=== PATIENT | male | born 1990 | race Caucasian/White ===

== ENCOUNTER 2017-02-03 17:16 | Inpatient (IN) | payer MEDICAID ==
[2017-02-03] MEDS ORDERED: NORMAL SALINE 1000 ML 1,000 ML IV PRN (18:39)
--- NOTE | 2017-02-03 18:45 | ER Document Report ---
ED Medical Screen (RME) - General Chief Complaint: Insect Bite Stated Complaint: Hernia and low back pain with skin inflammation Time Seen by Provider: 02/03/17 18:06 Notes: Patient is a 26-year-old male who presents emergency department with 2 complaints. Primary concern is a left inguinal hernia these had for a couple years but over the past 3 days it has become firm, tender and does not reduce. Patient denies any diarrhea, constipation. admits to fever, chills, nausea without vomiting. Also presents with complaint of left lower back swelling, tenderness for the past 4 days. Patient suffered a spinal cord injury in 2014 which is left him with partial paralysis of the lower extremities. Patient able to move his lower extremities but is unable to bear weight and is wheelchair-bound. Otherwise he denies any history of MRSA. He is originally from [place] and is here visiting family. Admits to tobacco use, denies any drug use, occasional alcohol use. I have consulted general surgeon implementation consultant Dr. Torres to evaluate the patient and he has requested a CT of the abdomen and pelvis with IV and p.o. contrast. Patient is to be moved to Main emergency department for surgical consult and possible admission. Patient is to be kept n.p.o. , IV access established and basic blood work sent. TRAVEL OUTSIDE OF THE [place] IN LAST 30 DAYS: No - Related Data Allergies/Adverse Reactions: No Known Allergies Allergy (Verified 02/03/17 17:36) Past Medical History - Social History Chew tobacco use (# tins/day): No Frequency of alcohol use: None Drug Abuse: None Renal/ Medical History: Denies: Hx Peritoneal Dialysis - Immunizations Hx Diphtheria, Pertussis, Tetanus Vaccination: No Physical Exam - Vital signs Vitals: Temp Pulse Resp BP Pulse Ox 98.2 F 102 H 14 111/57 L 98 02/03/17 17:30 02/03/17 17:30 02/03/17 17:30 02/03/17 17:30 02/03/17 17:30 - General General appearance: Appears well, Alert In distress: None - Respiratory Respiratory status: No respiratory distress Chest status: Nontender Breath sounds: Normal Chest palpation: Normal - Cardiovascular Rhythm: Regular Heart sounds: Normal auscultation, S1 appreciated, S2 appreciated Murmur: No Pulses: Normal: Radial, Dorsalis pedis Normal capillary refill: Yes - Abdominal Inspection: Other - left inguinal hernia Distension: No distension Bowel sounds: Normal Tenderness: Other - left inguinal hernia that is firm, tender and nonreducible Organomegaly: No organomegaly - Skin Location of irregularity: Other - left lower back Character of irregularity: Other - cellulitis without evidence of abscess on bedside ultrasound Irregularity with: Swelling, Tenderness, Warmth, Induration, Well defined border Course - Vital Signs Vital signs: Temp Pulse Resp BP Pulse Ox 98.2 F 102 H 14 111/57 L 98 02/03/17 17:30 02/03/17 17:30 02/03/17 17:30 02/03/17 17:30 02/03/17 17:30
--- NOTE | 2017-02-03 20:12 | ER Document Report ---
ED GI/ <JOHN REED - Last Filed: 02/04/17 07:35> - General Mode of Arrival: Ambulatory Information source: Patient TRAVEL OUTSIDE OF THE [place] IN LAST 30 DAYS: No - HPI Patient complains to provider of: Groin pain - Bilateral swollen knots, possible lymph nodes, possible hernias Timing/Duration: Gradual, Intermittent Quality of pain: Sharp Severity at maximum: Moderate Severity in ED: Moderate Pain Level: 4 Location: Other - bilateral groin swollen tender area. Associated symptoms: Other - stage 3 decubitus to left buttock with cellulitis Exacerbated by: Movement, Walking Relieved by: Denies Similar symptoms previously: Yes Recently seen / treated by doctor: No <JANETH DAVALOS - Last Filed: 02/04/17 07:44> - General Chief Complaint: Insect Bite Stated Complaint: BACK PAIN/POSSIBLE SPIDER BITE Time Seen by Provider: 02/03/17 18:06 Notes: 26-year-old male presents to ED for one is that he has a new broken down area on his bottom. He is a partial plegic from the waist down. He states he can walk for a short distance with a walker but his legs give out at the gym very short distance due to a spinal cord injury in 2015 he mostly uses a wheelchair and sits in the chair. Which is why he has decubitus on his buttocks and coccyx that is newer. He also has enlarged lymph nodes left and right the left greater than the right. States the left inguinal not has been there for about 3 or 4 days states it has been there off and on for the last year but small that today it is much bigger one on the right is small but tender to touch. ( JANETH DAVALOS) - Related Data Allergies/Adverse Reactions: No Known Allergies Allergy (Verified 02/03/17 17:36) Past Medical History - General Information source: Patient - Social History Smoking Status: Current Every Day Smoker Cigarette use (# per day): Yes - 5 cigarettes a day Chew tobacco use (# tins/day): No Smoking Education Provided: Yes - 2 minutes Frequency of alcohol use: Social Drug Abuse: None Occupation: Disabled partial paralysis from waist down Lives with: Parents Family History: Reviewed & Not Pertinent Patient has suicidal ideation: No Patient has homicidal ideation: No - Past Medical History Cardiac Medical History: Reports: None Pulmonary Medical History: Reports: None Renal/ Medical History: Denies: Hx Peritoneal Dialysis Past Surgical History: Reports: Other - Over a dozen surgeries related with the spine and left hip reconstruction. - Immunizations Hx Diphtheria, Pertussis, Tetanus Vaccination: No <JANETH DAVALOS - Last Filed: 02/04/17 07:44> Physical Exam - Vital signs Interpretation: Normal - General General appearance: Appears well, Alert - HEENT Head: Normocephalic, Atraumatic Eyes: Normal Pupils: PERRL - Respiratory Respiratory status: No respiratory distress Chest status: Nontender Breath sounds: Normal Chest palpation: Normal - Cardiovascular Rhythm: Regular Heart sounds: Normal auscultation Murmur: No - Abdominal Inspection: Normal Distension: No distension Bowel sounds: Normal Tenderness: Nontender Organomegaly: No organomegaly - Back Back: Normal, Nontender - Extremities General upper extremity: Normal inspection, Nontender, Normal color, Normal ROM , Normal temperature General lower extremity: Normal inspection, Nontender, Normal color, Normal ROM , Normal temperature, Normal weight bearing. No: Jenelle's sign - Neurological Neuro grossly intact: Yes Cognition: Normal Orientation: AAOx4 [place] Coma Scale Eye Opening: Spontaneous Kevin Coma Scale Verbal: Oriented [place] Coma Scale Motor: Obeys Commands Kevin Coma Scale Total: 15 Speech: Normal Motor strength normal: LUE, RUE, LLE, RLE Sensory: Normal - Psychological Associated symptoms: Normal affect, Normal mood - Skin Skin Temperature: Warm Skin Moisture: Dry Skin Color: Normal Location of irregularity: Other - buttocks Character of irregularity: Erythematous Irregularity with: Swelling, Tenderness, Warmth - left buttock has 2 decubitus 1 that is old and healing and a large decubitus that is red and inflamed with smal area of eschar., Lymphangitis, Thickening, Inflammation <JANETH DAVALOS - Last Filed: 02/04/17 07:44> - Vital signs Vitals: Temp Pulse Resp BP Pulse Ox 98.2 F 102 H 14 111/57 L 98 02/03/17 17:30 02/03/17 17:30 02/03/17 17:30 02/03/17 17:30 02/03/17 17:30 Course - Laboratory Result Diagrams: 02/03/17 20:00 02/03/17 20:00 <JOHN REED - Last Filed: 02/04/17 07:35> - Laboratory Result Diagrams: 02/03/17 20:00 02/03/17 20:00 - Diagnostic Test Radiology reviewed: Image reviewed, Reports reviewed <JANETH DAVALOS - Last Filed: 02/04/17 07:44> - Re-evaluation Re-evalutation: 02/03/17 23:40 Dr. Torres was at the bedside at 20:20 and the patient. He stated that the knots that Tresa was concerned about were enlarged lymph nodes and he felt the patient had osteomyelitis and will need orthopedic consult. He states please go ahead and get a CT abdomen and pelvis which is been ordered. He stated if the patient had appendicitis to call him and him in the OR. At [address] came back as being a abscess in the pelvis. Dr. Torres was called in OR he stated he still thinks it is osteomyelitis. We will wait for him to finish surgery for him to come and see the patient and the CAT scan. Patient with periodic while waiting. 02/04/17 04:45 Dr Torres was to the bedside and examined the patient. He stated he did not feel the abscess needed to be opened at this time but needs to be medically treated. Patient instructed to follow up with surgical clinic for wound care until he returns home to [place]. Will start patient on bactrim until he follows up with wound care. He was instructed to follow up with surgeon for biopsy of the lymphnodes to bilateral groin areas 02/04/17 05:00 Before patient could be discharged his vital signs were taken developed a temperature of 103. Discharge was canceled. Dr. ray was notified that the had a fever with his cellulitis decubitus he states the patient is still not a surgical patient in need to call medical. Dr. Flores was called who stated the patient is not a medical patient needs to be admitted to surgical. After calls back and forth I have consulted Dr. Reed to help me to get this patient admitted. 02/04/17 07:43 (JANETH DAVALOS) - Vital Signs Vital signs: Temp Pulse Resp BP Pulse Ox 102 F H 108 H 17 105/61 97 02/04/17 05:28 02/04/17 05:28 02/04/17 05:28 02/04/17 05:28 02/04/17 05:28 - Laboratory Laboratory results interpreted by me: 02/03/17 02/03/17 20:00 20:00 WBC 13.4 H MCHC 31.1 L RDW 14.5 H Seg Neutrophils % 83.2 H Lymphocytes % 7.0 L Absolute Neutrophils 11.2 H Total Protein 8.6 H - Transfer of Care Notes: 02/04/17 07:36 [address] did speak with Dr. Tinsley, hospitalist on-call, who agrees to evaluate and admit the patient. Dictation of this chart was performed using voice recognition software; therefore, there may be some unintended grammatical errors. (JOHN REED) Discharge - Discharge Admitting Provider: Hospitalist Unit Admitted: Medical Floor <JOHN REED - Last Filed: 02/04/17 07:35> <JANETH DAVALOS - Last Filed: 02/04/17 07:44> - Discharge Clinical Impression: Lymphadenopathy, Decubitus ulcer of left buttock, stage 3 Condition: Stable Disposition: ADMITTED INPATIENT
[2017-02-03 20:21] LABS: ABSOLUTE EOSINOPHILS # (AUTO) 0.3 10^3/uL (0.0-0.6); ABSOLUTE LYMPHOCYTES (AUTO) 0.9 10^3/uL (0.5-4.7); ABSOLUTE NEUT (AUTO) 11.2 10^3/uL (1.7-8.2); BASOPHILS % (AUTO) 0.3 % (0-2); EOSINOPHILS % (AUTO) 2.2 % (0-6); HEMATOCRIT 46.4 % (37.9-51.0); HEMOGLOBIN 14.4 g/dL (13.5-17.0); HGB HCT DIFFERENCE -3.2; MEAN CORPUSCULAR HEMOGLOBIN 27.4 pg (27.0-33.4); MEAN CORPUSCULAR HGB CONC 31.1 g/dL (32.0-36.0); MEAN CORPUSCULAR VOLUME 88 fl (80-97); MONOCYTES % (AUTO) 7.3 % (3-13); RED BLOOD COUNT 5.27 10^6/uL (4.35-5.55); RED CELL DISTRIBUTION WIDTH 14.5 % (11.5-14.0); SEGMENTED NEUTROPHILS % (AUTO) 83.2 % (42-78); WHITE BLOOD COUNT 13.4 10^3/uL (4.0-10.5)
--- NOTE | 2017-02-03 20:24 | PDOC CONSULTATION ---
Consultation Consult Date: 02/03/17 Consult reason:: Left groin swelling History of Present Illness History of Present Illness: RIDGE HUTTON is a 26 year old male with a history of intermittent left groin discomfort associated with swelling. He has noticed that this problem for about the past year. He has noticed a persistent lump on the left groin with some mild discomfort for the past several days. Nausea or vomiting. No abdominal pain. Patient has had a chronic open wound in his left posterior hip region. He has had a history of osteomyelitis treated with antibiotics in the past. And the wound has never healed. Patient also had erythema above this wound that had developed recently. Past Medical History Musculoskeletal History Note: Chronic back pain with history of multiple back surgeries. Past Surgical History Past Surgical History: Reports: Other - Over a dozen surgeries related with the spine and left hip reconstruction. Social History Smoking Status: Never Smoker Family History Parental Family History Reviewed: No Children Family History Reviewed: No Sibling(s) Family History Reviewed.: No Medication/Allergy Allergies/Adverse Reactions: No Known Allergies Allergy (Verified 02/03/17 17:36) Physical Exam Vital Signs: Temp Pulse Resp BP Pulse Ox 98.2 F 102 H 14 111/57 L 98 02/03/17 17:30 02/03/17 17:30 02/03/17 17:30 02/03/17 17:30 02/03/17 17:30 Intake & Output 02/02/17 02/03/17 02/04/17 06:59 06:59 06:59 Weight 62.8 kg General appearance: PRESENT: no acute distress, cooperative Eye exam: PRESENT: conjunctiva pink Respiratory exam: PRESENT: clear to auscultation lolita Cardiovascular exam: PRESENT: RRR GI/Abdominal exam: PRESENT: other - Soft, nondistended, nontender to palpation. Multiple scars well-healed with no palpable hernias. Gentrourinary exam: PRESENT: other - Bilateral testicles descended with no testicular masses. No palpable bulge noted with finger inserted into the external inguinal ring. On the left side just above the inguinal ligament above the femoral artery there is oblong firm smooth mass that is nonreducible. It appears to far lateral for an inguinal hernia and likely above inguinal segment thus not a femoral hernia. Extremities exam: PRESENT: other - Left posterior hip region with about a 2 cm sinus tract with surrounding erythema but no induration and no purulent drainage. Above this area patient has a several centimeter region of erythema with no fluctuance. Assessment & Plan - Diagnosis (1) Lymphadenopathy Is this a current diagnosis for this admission?: YesPlan: Left groin. However I cannot completely exclude an incarcerated inguinal hernia but my exam is not consistent with incarcerated hernia. Patient will undergo a CT scan. I have asked the ER physician to call me if it does show a an incarcerated hernia. Patient's lymphadenopathy is likely secondary to the chronic infectious process of his left posterior hip. Possible osteomyelitis. Patient has a chronic track. He has a cellulitis above it as well. Will defer to ER management of this process. Recommend referral to orthopedics if the x- rays demonstrate evidence of osteomyelitis. Otherwise referral to wound care clinic.
[2017-02-03 20:28] LABS: PROTHROMBIN TIME 14.9 SEC (11.4-15.4)
[2017-02-03 20:39] LABS: ALANINE AMINOTRANSFERASE 23 U/L (21-72); ALBUMIN 4.3 g/dL (3.5-5.0); ALKALINE PHOSPHATASE 96 U/L (38-126); ANION GAP 13 (5-19); ASPARTATE AMINO TRANSFERASE 25 U/L (17-59); BILIRUBIN,DIRECT 0.4 mg/dL (0.0-0.4); BILIRUBIN,TOTAL 0.7 mg/dL (0.2-1.3); BLOOD UREA NITROGEN 14 mg/dL (7-20); CALCIUM 9.4 mg/dL (8.4-10.2); CARBON DIOXIDE 26 mmol/L (22-30); CHLORIDE 103 mmol/L (98-107); CREATININE RESULT 0.84 mg/dL (0.52-1.25); GLUCOSE 98 mg/dL (75-110); SODIUM 142.2 mmol/L (137-145); TOTAL PROTEIN 8.6 g/dL (6.3-8.2)
[2017-02-03 21:11] LABS: APPEARANCE,URINE CLEAR; BILIRUBIN,URINE NEGATIVE (NEGATIVE); GLUCOSE, URINE NEGATIVE (NEGATIVE); KETONES,URINE NEGATIVE (NEGATIVE); LEUKOCYTE ESTERASE,URINE NEGATIVE (NEGATIVE); NITRITE,URINE NEGATIVE (NEGATIVE); PROTEIN,URINE NEGATIVE (NEGATIVE); UROBILINOGEN,URINE NEGATIVE mg/dL (<2.0)
[2017-02-03] MEDS ORDERED: ACETAMINOPHEN 650 MG SUPP.RECT PR ONE (21:37)
--- NOTE | 2017-02-03 22:45 | RADIOLOGY REPORT (SQ) ---
EXAM DESCRIPTION: CT ABD/PELVIS WITH IV ORAL COMPLETED DATE/TIME: 02/03/2017 10:14 pm REASON FOR STUDY: left inguinal hernia, nonreducible COMPARISON: None. TECHNIQUE: CT scan of the abdomen and pelvis performed using helical scanning technique with dynamic intravenous contrast injection. No oral contrast. Images reviewed with lung, soft tissue, and bone windows. Reconstructed coronal and sagittal MPR images reviewed. Delayed images for evaluation of the urinary system also acquired. All images stored on PACS. All CT scanners at this facility use dose modulation, iterative reconstruction, and/or weight based d osing when appropriate to reduce radiation dose to as low as reasonably achievable (ALARA). [facility]: Dose Right [facility]: CareDose [facility]: Dose Right [facility]: Teradose 4D [facility]: Distill CONTRAST TYPE AND DOSE: contrast/concentration: Isovue 370.00 mg/ml; Total Contrast Delivered: 68.0 ml; Total Saline Delivered: 45.0 ml RENAL FUNCTION: None required. The patient is less than 50 years old. RADIATION DOSE: Up-to-date CT equipment and radiation dose reduction techniques were employed. CTDIv ol: 4.9 mGy. DLP: 559 mGy-cm.. LIMITATIONS: None. FINDINGS: LOWER CHEST: No significant findings. No nodules or infiltrates. LIVER: Normal size. No masses. No dilated ducts. SPLEEN: Normal size. No focal lesions. PANCREAS: No masses. No significant calcifications. No adjacent inflammation or peripancreatic fluid collections. Pancreatic duct not dilated. GALLBLADDER: No identified stones by CT criteria. No inflammatory changes to suggest cholecystitis. ADRENAL GLANDS: No significant masses or asymmetry. RIGHT KIDNEY AND URETER: No solid masses. No significant calcifications. No hydronephrosis or hyd roureter. LEFT KIDNEY AND URETER: No solid masses. No significant calcifications. No hydronephrosis or hydr oureter. AORTA AND VESSELS: No aneurysm. No dissection. Renal arteries, SMA, celiac without stenosis. RETROPERITONEUM: No retroperitoneal adenopathy, hemorrhage or masses. BOWEL AND PERITONEAL CAVITY: No masses or inflammatory changes. No free fluid or peritoneal masses. APPENDIX: Not visualized. PELVIS: There are numerous enlarged bilateral inguinal lymph nodes. No focal hernia. The largest no de is on the left and measures 2.6 cm in diameter. There are extensive postsurgical changes in the p moreno which limit soft tissue evaluation. There is a focal area of decreased attenuation along the r ight inferior pubic ramus suspicious for developing abscess. The collection measures 2.6 cm in great est diameter. On the left there is no focal fluid but there is subcutaneous gas. This may represent a decubitus. Clinical correlation is needed. ABDOMINAL WALL: No masses. No hernias. BONES: No significant or acute findings. OTHER: No other significant finding. IMPRESSION: 1. Bilateral inguinal adenopathy left greater than right. No focal hernia. 2. Inflammatory changes surrounding both the inferior pubic rami with a focal 2.6 cm fluid collectio n on the right consistent with developing abscess. TECHNICAL DOCUMENTATION: JOB ID: [id number] Quality ID # [id number]: Final reports with documentation of one or more dose reduction techniques (e.g., Au tomated exposure control, adjustment of the mA and/or kV according to patient size, use of iterative reconstruction technique) 2010 [employer]- All Rights Reserved
[2017-02-03] MEDS ORDERED: AMPICILLIN SOD/SULBACTAM 3 GM VIAL IV ONE (23:29)
[2017-02-04] MEDS ORDERED: HYDROCODONE/ACETAMINOPHEN 5-325 MG TABLET PO ONE (01:17)
--- NOTE | 2017-02-04 03:24 | PDOC PROGRESS REPORT ---
Subjective Progress Note for:: 02/04/17 Physical Exam Vital Signs: Temp Pulse Resp BP Pulse Ox 98.2 F 102 H 14 111/57 L 98 02/03/17 17:30 02/03/17 17:30 02/03/17 17:30 02/03/17 17:30 02/03/17 17:30 Intake & Output 02/02/17 02/03/17 02/04/17 06:59 06:59 06:59 Weight 62.8 kg Rectal exam: PRESENT: other - right buttocks with scarring consistent with an old prior abscess. There is no induration the skin is very soft there is absolutely no erythema. There is a palpable soft mass that extends to the perineum consistent with a seroma. But again there is no induration and no erythema in the skin overlying this apparent seroma is soft and supple. Results Laboratory Results: 02/03/17 20:00 02/03/17 20:00 02/03/17 02/03/17 02/03/17 20:00 20:00 20:47 WBC 13.4 H RBC 5.27 Hgb 14.4 Hct 46.4 MCV 88 MCH 27.4 MCHC 31.1 L RDW 14.5 H Plt Count 226 Seg Neutrophils % 83.2 H Lymphocytes % 7.0 L Monocytes % 7.3 Eosinophils % 2.2 Basophils % 0.3 Absolute Neutrophils 11.2 H Absolute Lymphocytes 0.9 Absolute Monocytes 1.0 Absolute Eosinophils 0.3 Absolute Basophils 0.0 Sodium 142.2 Potassium 4.0 Chloride 103 Carbon Dioxide 26 Anion Gap 13 BUN 14 Creatinine 0.84 Est GFR ( Amer) > 60 Est GFR (Non-Af Amer) > 60 Glucose 98 Calcium 9.4 Total Bilirubin 0.7 AST 25 ALT 23 Alkaline Phosphatase 96 Total Protein 8.6 H Albumin 4.3 Urine Color YELLOW Urine Appearance CLEAR Urine pH 5.0 Ur Specific [place] 1.030 Urine Protein NEGATIVE Urine Glucose (UA) NEGATIVE Urine Ketones NEGATIVE Urine Blood NEGATIVE Urine Nitrite NEGATIVE Ur Leukocyte Esterase NEGATIVE Urine WBC (Auto) 0 Urine RBC (Auto) 3 Impressions: Abdomen/Pelvis CT 02/03/17 00:00 IMPRESSION: 1. Bilateral inguinal adenopathy left greater than right. No focal hernia. 2. Inflammatory changes surrounding both the inferior pubic rami with a focal 2.6 cm fluid collection on the right consistent with developing abscess. Assessment & Plan - Diagnosis (1) Lymphadenopathy Is this a current diagnosis for this admission?: Yes (2) Seroma Is this a current diagnosis for this admission?: YesPlan: CT scan demonstrated lymphadenopathy. It demonstrated the sinus tract of the left buttocks region that is seen on exam. Radiologist also commented on a pelvic fluid collection. I have reviewed the CT scan with the radiologist and there does appear to be a fluid collection at the right buttocks area tracking to the perineum. However there is no evidence of infection by physical exam in this region. Patient has had a prior decubitus ulcer in this area that has healed over and I suspect that it is a seroma from this prior event. I do not recommend any intervention for this finding. However he does have cellulitis of his left upper buttocks region as well as a nonhealing sinus tract in the left buttocks region. Will defer to ER as far as management with antibiotics as an outpatient versus inpatient. Recommend follow-up with wound care clinic as outpatient for the chronic wound. Have discussed my recommendation with the ER nurse practitioner.
[2017-02-04] MEDS ORDERED: ACETAMINOPHEN 325 MG TABLET PO ONE (07:01)
[2017-02-04] MEDS ORDERED: ONDANSETRON HCL INJ/PF 4 MG/2 ML SDV IV PRN (07:26)
[2017-02-04] MEDS: OXYCODONE-ACETAMINOPHEN 5-325 MG TABLET PO PRN ×2 (09:09→19:47)
[2017-02-04] MEDS ORDERED: NORMAL SALINE 1000 ML 1,000 ML IV ONE (09:20)
[2017-02-04] MEDS ORDERED: VANCOMYCIN HCL 0 MG in DEXTROSE 5%-WATER 250 ML IV NR (09:30)
[2017-02-04] MEDS ORDERED: ENOXAPARIN SODIUM INJ 40 MG/0.4 ML DISP.SYRIN SUBCUT SCH (10:00)
[2017-02-04] MEDS ORDERED: VANCOMYCIN HCL 1,500 MG in DEXTROSE 5%-WATER 250 ML IV ONE (11:00)
[2017-02-04] MEDS: LACTOBACILLUS ACIDOPHILUS 250 MG TAB PO SCH ×2 (11:45→18:11)
[2017-02-04] MEDS: NICOTINE 14 MG/24 HR PATCH.TD24 TD SCH (11:46)
[2017-02-04] MEDS: DOCUSATE SODIUM 100 MG CAPSULE PO SCH ×2 (11:47→18:14)
[2017-02-04] MEDS: NORMAL SALINE 1000 ML 1,000 ML IV PRN (11:50)
[2017-02-04] MEDS ORDERED: PIPERACILLIN SODIUM/TAZOBACTAM 4.5 GM in NORMAL SALINE 100 ML IV SCH (12:00)
--- NOTE | 2017-02-04 12:56 | PDOC H&P ---
History of Present Illness Admission Date/PCP: 02/04/17 07:26 Patient complains of: Right lower abdominal pain and pain in left buttock History of Present Illness: Patient is a 26-year-old male who presents tp [facility]'s emergency department with 2 complaints. Primary concern is a left inguinal hernia these had for a couple years but over the past 3 days it has become firm , tender and does not reduce. Patient denies any diarrhea, constipation. admits to fever, chills, nausea without vomiting. Also presents with complaint of left lower back swelling, tenderness for the past 4 days. Patient suffered a spinal cord injury in 2014 which is left him with partial paralysis of the lower extremities. Patient able to move his lower extremities but is unable to bear weight and is wheelchair-bound. Otherwise he denies any history of MRSA. He is originally from [place] and is here visiting family. Admits to tobacco use, denies any drug use, occasional alcohol use. Past Medical History Cardiac Medical History: Reports: None Pulmonary Medical History: Reports: None EENT Medical History: Reports: None Neurological Medical History: Reports: None Endocrine Medical History: Reports: None Renal/ Medical History: Reports: None Malignancy Medical History: Reports: None GI Medical History: Reports: Other - Right inguinal hernia Musculoskeltal Medical History: Reports: Other Skin Medical History: Reports: None Psychiatric Medical History: Reports: Tobacco Dependency Traumatic Medical History: Reports: None Hematology: Reports: None Infectious Medical History: Reports: None Past Surgical History Past Surgical History: Reports: Other - Over a dozen surgeries related with the spine and left hip reconstruction. Social History Information Source: Patient Lives with: Parents Smoking Status: Current Every Day Smoker Cigarettes Packs Per Day: 5 Number of Years Smokin Last Time Smoked: 02/03/17 Frequency of Alcohol Use: Social Hx Recreational Drug Use: No Drugs: None Hx Prescription Drug Abuse: No - Advance Directive Resuscitation Status: Full Code Surrogate healthcare decision maker:: Mother, his healthcare decision maker if he becomes incapacitated Family History Family History: Hypertension Parental Family History Reviewed: Yes Children Family History Reviewed: Yes Sibling(s) Family History Reviewed.: Yes Medication/Allergy Home Medications: Oxycodone HCl/Acetaminophen [Percocet 5-325 mg Tablet] 1 tab PO Q12 02/04/17 Allergies/Adverse Reactions: No Known Allergies Allergy (Verified 02/03/17 17:36) Review of Systems Constitutional: PRESENT: chills, fever(s) Eyes: ABSENT: visual disturbances Ears: ABSENT: hearing changes Cardiovascular: ABSENT: chest pain, dyspnea on exertion, edema, orthropnea, palpitations Respiratory: PRESENT: cough. ABSENT: hemoptysis Gastrointestinal: PRESENT: abdominal pain Genitourinary: ABSENT: dysuria, hematuria Musculoskeletal: PRESENT: back pain, deformity, other - Paraplegic Integumentary: PRESENT: erythema, wounds, other - 6cm area of erythema with purulent drainage on left upper gluteal region Neurological: ABSENT: abnormal gait, abnormal speech, confusion, dizziness, focal weakness, syncope Psychiatric: ABSENT: anxiety, depression, homidical ideation, suicidal ideation Physical Exam Vital Signs: Temp Pulse Resp BP Pulse Ox 98.1 F 89 18 97/58 L 98 02/04/17 10:37 02/04/17 10:37 02/04/17 10:37 02/04/17 10:37 02/04/17 10:37 Intake & Output 02/03/17 02/04/17 02/05/17 06:59 06:59 06:59 Weight 64.2 kg General appearance: PRESENT: no acute distress, thin, well-developed Head exam: PRESENT: atraumatic, normocephalic Eye exam: PRESENT: conjunctiva pink, EOMI, PERRLA. ABSENT: scleral icterus Ear exam: PRESENT: normal external ear exam Mouth exam: PRESENT: moist, tongue midline Respiratory exam: PRESENT: clear to auscultation lolita. ABSENT: rales, rhonchi, wheezes Cardiovascular exam: PRESENT: RRR. ABSENT: diastolic murmur, rubs, systolic murmur Vascular exam: PRESENT: normal capillary refill GI/Abdominal exam: PRESENT: hernia, normal bowel sounds, soft, other - left inguinal reducible. ABSENT: distended, guarding, mass, organolmegaly, rebound, tenderness Extremities exam: PRESENT: full ROM, other - muscle atrophy of bilateral lower extremities. ABSENT: calf tenderness, clubbing, pedal edema Musculoskeletal exam: PRESENT: normal inspection, other Neurological exam: PRESENT: alert, awake, oriented to person, oriented to place , oriented to time, oriented to situation, CN II-XII grossly intact. ABSENT: motor sensory deficit Psychiatric exam: PRESENT: appropriate affect, normal mood. ABSENT: homicidal ideation, suicidal ideation Skin exam: PRESENT: erythema - 6 cm erythemic are, warm, other Results Impressions: Abdomen/Pelvis CT 02/03/17 00:00 IMPRESSION: 1. Bilateral inguinal adenopathy left greater than right. No focal hernia. 2. Inflammatory changes surrounding both the inferior pubic rami with a focal 2.6 cm fluid collection on the right consistent with developing abscess. Assessment & Plan - Diagnosis (1) Abscess Is this a current diagnosis for this admission?: YesPlan: Patient has an large abcess of the left upper gluteal region with purulent discharge. Patient will be started on broad spectrum antibiotics after blood cultures x 2 were (2) Decubitus ulcer of left buttock, stage 3 Is this a current diagnosis for this admission?: YesPlan: IV broad spectrum antibiotics, local wound care consult with general surgery (3) Lymphadenopathy Is this a current diagnosis for this admission?: YesPlan: Secondary to left gluteal abcess (4) Paraplegia, incomplete Is this a current diagnosis for this admission?: YesPlan: Secondary to trauma partial paralysis of bilateral lower extremities - Time Time Spent: 50 to 70 Minutes Critical Time spent with patient: 35 or more minutes Medications reviewed and adjusted accordingly: Yes Anticipated discharge: Home with Homehealth
[2017-02-04] MEDS ORDERED: DIPHENHYDRAMINE HCL 25 MG CAPSULE PO ONE (14:00)
[2017-02-04] MEDS: ACETAMINOPHEN 325 MG TABLET PO PRN ×2 (15:28→23:45)
[2017-02-04] MEDS ORDERED: GLUCAGON,HUMAN RECOMB 1 MG INJ SUBCUT PRN (17:59)
[2017-02-04] MEDS ORDERED: DEXTROSE 50%-WATER 25 GM/50 ML DISP.SYRIN IV PRN ×2 (17:59)
[2017-02-04] MEDS ORDERED: DEXTROSE 40% GEL 15 GM TUBE PO PRN ×2 (17:59)
[2017-02-04] MEDS: VANCOMYCIN HCL 750 MG in DEXTROSE 5%-WATER 250 ML IV SCH (18:11)
[2017-02-04] MEDS: MORPHINE SULFATE 10 MG/ML INJ IV PRN ×2 (18:22→23:46)
[2017-02-04] MEDS: PIPERACILLIN SODIUM/TAZOBACTAM 4.5 GM in NORMAL SALINE 100 ML IV SCH (20:56)
[2017-02-04] MEDS: ALPRAZOLAM 0.5 MG TABLET PO PRN (20:57)
--- NOTE | 2017-02-04 21:14 | RADIOLOGY REPORT (SQ) ---
EXAM DESCRIPTION: MRI PELVIS COMBO COMPLETED DATE/TIME: 02/04/2017 8:47 pm REASON FOR STUDY: concern for osteomyelitis COMPARISON: None. TECHNIQUE: Multiplanar multisequence imaging without and with contrast including axial, sagittal and coronal fat sat T2, axial and coronal T1, axial and coronal T1 post contrast. CONTRAST TYPE AND DOSE: 10 mL Prohance. RENAL FUNCTION: GFR > 60. LIMITATIONS: None. FINDINGS: Increased T2 signal and decreased T1 signal in the marrow of the left ischial ramus and po sterior tuberosity with mild cortical irregularity. Mild enhancement is present in this region follo wing contrast administration. There is diffuse soft tissue edema and enhancement throughout the left ischial in gluteal soft tissues. In the right ischial soft tissues there is rim enhancing fluid which is irregularly-shaped, measuring 7 cm transversely by 3 cm AP by 1.2 cm in thickness, this extends from the right peroneal -inferior scrotal soft tissue superiorly along the posterior aspect of the right ischial ramus into the gluteal soft tissues. Small areas of edema extend into the sciatic notch. No perirectal or intrapelvic fluid collection or and significant abnormal enhancement is otherwise identified. Lower lumbar spinal fusion. IMPRESSION: Findings concerning for osteomyelitis in the left ischial ramus-tuberosity. Findings arrington ggesting abscess in the right ischial soft tissues. TECHNICAL DOCUMENTATION: JOB ID: [id number]- All Rights Reserved
--- NOTE | 2017-02-04 23:09 | PROGRESS NOTE E ---
Progress Note NAME: RIDGE HUTTON : 1990 AGE: 26Y DATE: 02/04/2017 ROOM: 314 SUBJECTIVE: The patient is a 26-year-old male with a history of a back injury with spinal cord injury in 2014 having partial paralysis of the lower extremities. He has had pain and drainage from the buttock region, therefore came to the emergency room to be evaluated. He was found to have a pressure sore on the left side with some skin necrosis. He has had drainage in the past but has resolved spontaneously. He had been doing well until about a week ago when he started having this pain and swelling in the buttock area. He denies any recent trauma to those areas. The patient is complaining of pain in the left buttock region. OBJECTIVE: VITAL SIGNS: Temperature 101.8, pulse 107, blood pressure 110/58. DIAGNOSTIC DATA: White blood cell count 13.4. Cultures of the buttock region show gram-positive cocci in cluster. Previous CT scan shows a fluid collection of 4 cm in the right buttock area suspicious for an abscess. This is opposite to the side that he is having his symptoms from. ASSESSMENT AND PLAN: 1. SKIN NECROSIS, LEFT BUTTOCK. He also has air around the pubic rami on the left side that is connected to the area on the skin. There is questionable osteomyelitis being present. He does not have any obvious fistulous tract that could be causing the air deep in the subcutaneous tissue. Therefore, this was ongoing infection and would recommend incision, drainage and debridement of the entire necrotic area in the left buttock area. I have explained that this may go all the way to the pubic rami and he may need a bone biopsy. The risks and possible complications of the procedure have been explained to him and he agrees to proceed with the procedure. I have stated that this can be a intermediate issue and if he has infection in the pelvic bone, then further intervention will be needed. He would need long-term wound care or even surgical intervention in some of these cases for flap closure. He accepts the risks and wishes to proceed with the procedure. 2. FLUID COLLECTION IN THE RIGHT BUTTOCKS OF UNKNOWN ETIOLOGY. Currently he does not have any symptoms related to this. Because there is some suspicion for an abscess, consideration for interventional radiology and drainage with cultures of the fluid should be considered. I would recommend getting an MRI of the area to rule out osteomyelitis as a cause. 3. CONTINUE IV ANTIBIOTICS UNTIL WOUND CULTURES HAVE BEEN APPROPRIATELY OBTAINED. DICTATING PHYSICIAN: LIZBETH WOODWARD M.D. [id number] PHY#: [id number] 2017 ID: [id number] JOB#: [id number] ACCT: [id number] cc: >
[2017-02-05] MEDS: ZOLPIDEM TARTRATE 5 MG TABLET PO PRN (00:41)
[2017-02-05] MEDS: NORMAL SALINE 1000 ML 1,000 ML IV PRN (00:42)
[2017-02-05] MEDS: VANCOMYCIN HCL 750 MG in DEXTROSE 5%-WATER 250 ML IV SCH ×3 (01:30→22:29)
[2017-02-05] MEDS: OXYCODONE-ACETAMINOPHEN 5-325 MG TABLET PO PRN ×3 (03:31→20:37)
[2017-02-05] MEDS: ACETAMINOPHEN 325 MG TABLET PO PRN (04:54)
[2017-02-05] MEDS: PIPERACILLIN SODIUM/TAZOBACTAM 4.5 GM in NORMAL SALINE 100 ML IV SCH ×3 (04:54→17:14)
[2017-02-05 05:24] LABS: ABSOLUTE EOSINOPHILS # (AUTO) 0.3 10^3/uL (0.0-0.6); ABSOLUTE LYMPHOCYTES (AUTO) 0.9 10^3/uL (0.5-4.7); ABSOLUTE MONOCYTES (AUTO) 0.9 10^3/uL (0.1-1.4); ABSOLUTE NEUT (AUTO) 5.7 10^3/uL (1.7-8.2); BASOPHILS % (AUTO) 0.6 % (0-2); HEMATOCRIT 38.2 % (37.9-51.0); HEMOGLOBIN 12.5 g/dL (13.5-17.0); HGB HCT DIFFERENCE -0.7; LYMPHOCYTES % (AUTO) 11.9 % (13-45); MEAN CORPUSCULAR HEMOGLOBIN 28.5 pg (27.0-33.4); MEAN CORPUSCULAR HGB CONC 32.7 g/dL (32.0-36.0); MEAN CORPUSCULAR VOLUME 87 fl (80-97); RED BLOOD COUNT 4.38 10^6/uL (4.35-5.55); RED CELL DISTRIBUTION WIDTH 13.7 % (11.5-14.0); SEGMENTED NEUTROPHILS % (AUTO) 72.5 % (42-78); WHITE BLOOD COUNT 7.9 10^3/uL (4.0-10.5)
[2017-02-05 05:35] LABS: ANION GAP 11 (5-19); BLOOD UREA NITROGEN 7 mg/dL (7-20); CALCIUM 8.4 mg/dL (8.4-10.2); CARBON DIOXIDE 26 mmol/L (22-30); CHLORIDE 102 mmol/L (98-107); CREATININE RESULT 1.05 mg/dL (0.52-1.25); GLUCOSE 70 mg/dL (75-110); POTASSIUM 3.5 mmol/L (3.6-5.0)
[2017-02-05] MEDS: MORPHINE SULFATE 10 MG/ML INJ IV PRN ×3 (06:16→20:38)
[2017-02-05] MEDS ORDERED: ONDANSETRON HCL INJ/PF 4 MG/2 ML SDV ONE (08:18)
[2017-02-05] MEDS ORDERED: MIDAZOLAM 2 MG/2 ML INJ ONE (08:18)
[2017-02-05] MEDS ORDERED: DEXAMETHASONE SOD PHOSPHATE INJ 4 MG/1 ML VIAL ONE (08:18)
[2017-02-05] MEDS ORDERED: PROPOFOL INJ 200 MG/20 ML VIAL IV ONE (08:18)
[2017-02-05] MEDS ORDERED: FENTANYL CITRATE INJ/PF 250 MCG/5 ML AMPULE ONE (08:18)
[2017-02-05] MEDS ORDERED: MORPHINE SULFATE 10 MG/ML INJ ONE ×2 (08:19→10:22)
[2017-02-05] MEDS ORDERED: DIPHENHYDRAMINE HCL 50 MG/ML VIAL IV PRN (09:08)
[2017-02-05] MEDS ORDERED: OXYCODONE-ACETAMINOPHEN 5-325 MG TABLET PO PRN ×2 (09:08)
[2017-02-05] MEDS ORDERED: MORPHINE SULFATE 10 MG/ML INJ IV PRN (09:08)
[2017-02-05] MEDS ORDERED: MEPERIDINE HCL/PF INJ 25 MG/1 ML DISP.SYRIN IV PRN (09:08)
[2017-02-05] MEDS ORDERED: FENTANYL CITRATE INJ/PF 100 MCG/2 ML AMPUL IV PRN ×3 (09:08)
[2017-02-05] MEDS ORDERED: PROMETHAZINE HCL INJ 25 MG/1 ML VIAL IV PRN ×2 (09:08)
[2017-02-05] MEDS ORDERED: ACETAMINOPHEN 100 ML IV ONE (10:08)
[2017-02-05] MEDS ORDERED: MORPHINE SULFATE 10 MG/ML INJ INJ ONE (10:20)
[2017-02-05] MEDS: DOCUSATE SODIUM 100 MG CAPSULE PO SCH ×2 (11:37→17:14)
[2017-02-05] MEDS: LACTOBACILLUS ACIDOPHILUS 250 MG TAB PO SCH ×2 (11:37→17:14)
[2017-02-05] MEDS: NICOTINE 14 MG/24 HR PATCH.TD24 TD SCH (11:39)
[2017-02-05] MEDS ORDERED: BENZOCAINE/MENTHOL SORE THROAT LOZENGE BUCCAL PRN (11:51)
[2017-02-05] MEDS ORDERED: POTASSIUM CHLORIDE 10 MEQ TABLET.SA PO ONE (12:30)
[2017-02-05 13:23] LABS: CREATININE RESULT 0.88 mg/dL (0.52-1.25)
--- NOTE | 2017-02-05 14:35 | PDOC PROGRESS REPORT ---
Subjective Progress Note for:: 02/05/17 Subjective:: Patient is seen on morning rounds. He just returned from the OR/PACU after having a debridement of left gluteal abcess by Dr Scott. He is complaining of a sore throat and mild tenderness in his left buttock region. He denies any cough, dyspnea or shortness of breath. He denies any nausea, vomiting or abdominal pain. He denies any fevers or chills. Physical Exam Vital Signs: Temp Pulse Resp BP Pulse Ox 98.6 F 89 18 115/70 95 02/05/17 11:23 02/05/17 11:23 02/05/17 11:23 02/05/17 11:23 02/05/17 11:23 Intake & Output 02/04/17 02/05/17 02/06/17 06:59 06:59 06:59 Intake Total 3511 500 Output Total 2550 300 Balance 961 200 Weight 64.2 kg General appearance: PRESENT: no acute distress, thin, well-developed Head exam: PRESENT: atraumatic, normocephalic Eye exam: PRESENT: conjunctiva pink, EOMI, PERRLA. ABSENT: scleral icterus Ear exam: PRESENT: normal external ear exam Mouth exam: PRESENT: moist, tongue midline Respiratory exam: PRESENT: clear to auscultation lolita. ABSENT: rales, rhonchi, wheezes Cardiovascular exam: PRESENT: RRR. ABSENT: diastolic murmur, rubs, systolic murmur Pulses: PRESENT: normal dorsalis pedis pul Vascular exam: PRESENT: normal capillary refill GI/Abdominal exam: PRESENT: hypoactive bowel sounds, soft Rectal exam: PRESENT: deferred Extremities exam: PRESENT: full ROM. ABSENT: calf tenderness, clubbing, pedal edema Musculoskeletal exam: PRESENT: full ROM Neurological exam: PRESENT: alert, awake, oriented to person, oriented to place , oriented to time, oriented to situation, CN II-XII grossly intact, other - bilateral lower extremity weakness from spinal cord injury. ABSENT: motor sensory deficit Psychiatric exam: PRESENT: appropriate affect, normal mood. ABSENT: homicidal ideation, suicidal ideation Skin exam: PRESENT: dry, intact, warm. ABSENT: cyanosis, rash Results Laboratory Results: 02/05/17 03:52 02/05/17 12:23 02/05/17 02/05/17 02/05/17 03:52 03:52 12:23 WBC 7.9 RBC 4.38 Hgb 12.5 L Hct 38.2 MCV 87 MCH 28.5 MCHC 32.7 RDW 13.7 Plt Count 120 L Seg Neutrophils % 72.5 Lymphocytes % 11.9 L Monocytes % 11.0 Eosinophils % 4.0 Basophils % 0.6 Absolute Neutrophils 5.7 Absolute Lymphocytes 0.9 Absolute Monocytes 0.9 Absolute Eosinophils 0.3 Absolute Basophils 0.0 Sodium 139.0 Potassium 3.5 L Chloride 102 Carbon Dioxide 26 Anion Gap 11 BUN 7 Creatinine 1.05 0.88 Est GFR ( Amer) > 60 > 60 Est GFR (Non-Af Amer) > 60 > 60 Glucose 70 L Calcium 8.4 Impressions: Abdomen/Pelvis CT 02/03/17 00:00 IMPRESSION: 1. Bilateral inguinal adenopathy left greater than right. No focal hernia. 2. Inflammatory changes surrounding both the inferior pubic rami with a focal 2.6 cm fluid collection on the right consistent with developing abscess. Pelvis MRI 02/04/17 00:00 IMPRESSION: Findings concerning for osteomyelitis in the left ischial ramus- tuberosity. Findings suggesting abscess in the right ischial soft tissues. Assessment & Plan - Diagnosis (1) Sepsis Qualifiers: Sepsis type: sepsis due to unspecified organism Qualified Code(s): A41.9 - Sepsis, unspecified organism Is this a current diagnosis for this admission?: YesPlan: Improved after IV hydration and antibiotic therapy (2) Osteomyelitis Qualifiers: Osteomyelitis location: other site Is this a current diagnosis for this admission?: YesPlan: MRI pelvis showed osteomyelitis of left ischial tuberosity. Treatment dependent on surgery findings. Will need at least 6 weeks of IV antibiotics . Blood culture x 1 and wound cultures growing GM + cocci (3) Abscess Is this a current diagnosis for this admission?: YesPlan: Patient has an large abcess of the left upper gluteal region with purulent discharge. Patient will be started on broad spectrum antibiotics after blood cultures x 2 were (4) Decubitus ulcer of left buttock, stage 3 Is this a current diagnosis for this admission?: YesPlan: IV broad spectrum antibiotics, local wound care consult with general surgery (5) Lymphadenopathy Is this a current diagnosis for this admission?: YesPlan: Secondary to left gluteal abcess (6) Paraplegia, incomplete Is this a current diagnosis for this admission?: YesPlan: Secondary to trauma partial paralysis of bilateral lower extremities - Time Time Spent with patient: 25-34 minutes Critical Time spent with patient: 15-24 minutes Smoking Cessation Education: 3 to 10 minutes Medications reviewed and adjusted accordingly: Yes
[2017-02-05] MEDS: DIPHENHYDRAMINE HCL 50 MG/ML VIAL IV PRN ×2 (15:52→22:29)
[2017-02-05] MEDS: ALPRAZOLAM 0.5 MG TABLET PO PRN (22:30)
[2017-02-06] MEDS: PIPERACILLIN SODIUM/TAZOBACTAM 4.5 GM in NORMAL SALINE 100 ML IV SCH ×2 (00:18→05:42)
--- NOTE | 2017-02-06 04:23 | OPERATIVE REPORT E ---
Operative Report NAME: RIDGE HUTTON : 1990 AGE: 26Y DATE OF SURGERY: 02/05/2017 ROOM: 314 PREOPERATIVE DIAGNOSIS: Left sacral and ischial pressure sores. POSTOPERATIVE DIAGNOSES: 1. Left sacral infected with underlying abscess/sacral pressure sore. 2. Left ischial pressure sore with possible osteomyelitis. OPERATIONS: 1. Incision, drainage and debridement of left sacral infected pressure sore with abscess. 2. Debridement of left ischial pressure sore with biopsy of underlying ischium. SURGEON: LIZBETH WOODWARD M.D. ANESTHESIA: General. INDICATION FOR PROCEDURES: The patient is a 26-year-old male, who has had a history of spinal cord injury. He has had assisted pressure sores being present that heal and then come back. He now presents with swelling and discomfort in the left buttock region. CT scan of the area shows the air around the left ischium probably connecting to the surface of the left ischial pressure sore. There is also a fluid collection in the right gluteal area that is not palpated on physical exam. It is unknown what this is and will need to have further intervention possibly by radiology with needle placement and aspiration to see if it is truly an abscess or note and then localize if it does not resolve with that therapy. FINDINGS OF THE PROCEDURES: The patient had an area of skin necrosis of 4 cm that needed debridement with the underlying abscess being larger, probably 8 cm cavity. The area was debrided through subcutaneous tissue and muscle down to near the sacrum. In the ischial area, there was a small fistulous tract extending down. There was overlying granulation tissue, which was excised. With this I was able to follow the tract down to the underlying bone. In this area there was a large cavity measuring at least 9 cm of chronic smooth scar tissue. There was only 1 area of the underlying bone was rough as the rest of it was all covered and did not appear to be involved with infection. A Rongeur was then used to biopsy this area. DESCRIPTION OF PROCEDURES: After informed consent was obtained, the patient was taken to the operating room, placed in the supine position, endotracheal anesthesia administered. The patient's left gluteal area was then prepped and draped in usual sterile fashion. A circular incision was made around the area of necrosis in the sacral region, which was then excised. This allowed entrance into the abscess cavity. Necrotic tissue was removed in the subcutaneous, the fascia and underlying gluteal muscle. The skin incision measured about 4 cm, but the underlying defect was approximately 8 cm in diameter. The wound was irrigated, hemostasis was obtained using electrocautery. The wound was then packed with Betadine gauze dressing. Attention then turned to the ischial pressure sore. There was a wound, which had granulation tissue at the upper part and this tract extended deeper. This granulation tissue was then excised using electrocautery. The incision was then opened wider by incising the sidewall and allowing entrance into the deeper cavity measuring at least 9 cm in diameter. There was no purulence being present and contained smooth scar tissue. There is 1 area of the ischium that was rough. The MRI did show some possibility of osteomyelitis being present. Using a Rongeur, I was able to obtain several biopsies of the underlying bone. This was sent for culture and pathology. The wound was irrigated. Hemostasis was obtained using electrocautery. The wound was then packed open with a moist gauze and a dry dressing was then applied. The patient was then placed back into a supine position, awakened, extubated and taken from the operating room in stable condition. ESTIMATED BLOOD LOSS: 25 mL. COMPLICATIONS: None. CONDITION: Of the patient at the end of the procedure was stable. SPECIMENS: Debrided skin, fascia, muscle and underlying ischial bone. CLASSIFICATION: Wound is dirty. DRAINS/PACKS: The areas that were debrided were packed with gauze. DICTATING PHYSICIAN: LIZBETH WOODWARD M.D. [id number] Y#: [id number] ID: [id number] JOB#: [id number] ACCT: [id number] cc:LIZBETH WOODWARD M.D. >
[2017-02-06] MEDS: MORPHINE SULFATE 10 MG/ML INJ IV PRN ×3 (05:41→21:40)
[2017-02-06] MEDS: VANCOMYCIN HCL 750 MG in DEXTROSE 5%-WATER 250 ML IV SCH ×3 (06:49→21:40)
[2017-02-06] MEDS: DOCUSATE SODIUM 100 MG CAPSULE PO SCH ×2 (09:02→17:20)
[2017-02-06] MEDS: LACTOBACILLUS ACIDOPHILUS 250 MG TAB PO SCH ×2 (09:02→17:20)
[2017-02-06] MEDS: OXYCODONE-ACETAMINOPHEN 5-325 MG TABLET PO PRN ×3 (09:02→22:33)
[2017-02-06] MEDS: DIPHENHYDRAMINE HCL 50 MG/ML VIAL IV PRN ×2 (09:09→18:16)
--- NOTE | 2017-02-06 09:49 | PDOC PROGRESS REPORT ---
Subjective Progress Note for:: 02/06/17 Subjective:: Patient is seen on morning rounds. He is resting in bed. He is having moderate amounts of pain in the left gluteus. He states 6 months ago he had a similar abcess on the right buttock and was treated with IV vancomycin. He states he did not complete the full course of treatment as prescribed. He denies any cough, dyspnea or shortness of breath. He denies any nausea, vomiting or abdominal pain. He denies any fevers or chills. Physical Exam Vital Signs: Temp Pulse Resp BP Pulse Ox 97.4 F 53 L 19 89/45 L 100 02/06/17 07:36 02/06/17 07:36 02/06/17 07:36 02/06/17 07:36 02/06/17 07:36 Intake & Output 02/05/17 02/06/17 02/07/17 06:59 06:59 06:59 Intake Total 3511 3151 Output Total 2550 2100 Balance 961 1051 Weight 64.2 kg 70.4 kg General appearance: PRESENT: no acute distress, well-developed, well-nourished Head exam: PRESENT: atraumatic, normocephalic Eye exam: PRESENT: conjunctiva pink, EOMI, PERRLA. ABSENT: scleral icterus Ear exam: PRESENT: normal external ear exam Mouth exam: PRESENT: moist, tongue midline Neck exam: ABSENT: carotid bruit, JVD, lymphadenopathy, thyromegaly Respiratory exam: PRESENT: clear to auscultation lolita. ABSENT: rales, rhonchi, wheezes Cardiovascular exam: PRESENT: RRR. ABSENT: diastolic murmur, rubs, systolic murmur Pulses: PRESENT: normal dorsalis pedis pul Vascular exam: PRESENT: normal capillary refill GI/Abdominal exam: PRESENT: normal bowel sounds, soft. ABSENT: distended, guarding, mass, organolmegaly, rebound, tenderness Rectal exam: PRESENT: deferred Extremities exam: PRESENT: full ROM. ABSENT: calf tenderness, clubbing, pedal edema Musculoskeletal exam: PRESENT: ambulatory, full ROM, tenderness - left buttock Neurological exam: PRESENT: alert, awake, oriented to person, oriented to place , oriented to time, oriented to situation, CN II-XII grossly intact. ABSENT: motor sensory deficit Psychiatric exam: PRESENT: appropriate affect, normal mood. ABSENT: homicidal ideation, suicidal ideation Skin exam: PRESENT: dry, intact, warm, other - left buttock dressing intact. ABSENT: cyanosis, rash Results Laboratory Results: 02/05/17 03:52 02/05/17 12:23 02/05/17 12:23 Creatinine 0.88 Est GFR ( Amer) > 60 Est GFR (Non-Af Amer) > 60 Impressions: Abdomen/Pelvis CT 02/03/17 00:00 IMPRESSION: 1. Bilateral inguinal adenopathy left greater than right. No focal hernia. 2. Inflammatory changes surrounding both the inferior pubic rami with a focal 2.6 cm fluid collection on the right consistent with developing abscess. Pelvis MRI 02/04/17 00:00 IMPRESSION: Findings concerning for osteomyelitis in the left ischial ramus- tuberosity. Findings suggesting abscess in the right ischial soft tissues. Assessment & Plan - Diagnosis (1) Sepsis Qualifiers: Sepsis type: sepsis due to unspecified organism Qualified Code(s): A41.9 - Sepsis, unspecified organism Is this a current diagnosis for this admission?: YesPlan: Improved after IV hydration and antibiotic therapy (2) Abscess Is this a current diagnosis for this admission?: YesPlan: Patient has an large abcess of the left upper gluteal region with purulent discharge. Patient will be started on broad spectrum antibiotics after blood cultures x 2 were (3) Osteomyelitis Qualifiers: Osteomyelitis location: other site Is this a current diagnosis for this admission?: YesPlan: MRI pelvis showed osteomyelitis of left ischial tuberosity. Bone biopsy pending from surgery yesterday Will need at least 6 weeks of IV antibiotics . Blood culture x 1 and wound cultures growing MRSA. Will repeat blood cultures in am once clear can have PICC placed (4) Decubitus ulcer of left buttock, stage 3 Is this a current diagnosis for this admission?: YesPlan: IV broad spectrum antibiotics, local wound care consult with general surgery (5) Lymphadenopathy Is this a current diagnosis for this admission?: YesPlan: Secondary to left gluteal abcess (6) Paraplegia, incomplete Is this a current diagnosis for this admission?: YesPlan: Secondary to trauma partial paralysis of bilateral lower extremities - Time Time Spent with patient: 25-34 minutes Critical Time spent with patient: 15-24 minutes Smoking Cessation Education: 3 to 10 minutes Medications reviewed and adjusted accordingly: Yes Anticipated discharge: Home with Homehealth - Inpatient Certification Based on my medical assessment, after consideration of the patient's comorbidities, presenting symptoms, or acuity I expect that the services needed warrant INPATIENT care.: Yes I certify that my determination is in accordance with my understanding of Medicare's requirements for reasonable and necessary INPATIENT services [42 CFR 412.3e].: Yes Medical Necessity: Need For IV Fluids, Need for IV Antibiotics, Need for Surgery
[2017-02-06 14:31] LABS: CREATININE RESULT 0.85 mg/dL (0.52-1.25)
[2017-02-06] MEDS: ALPRAZOLAM 0.5 MG TABLET PO PRN (18:16)
--- NOTE | 2017-02-06 23:23 | PROGRESS NOTE E ---
Progress Note NAME: RIDGE HUTTON : 1990 AGE: 26Y DATE: 02/06/2017 ROOM: 314 SUBJECTIVE: The patient is postoperative day 1 from incision and drainage of a left buttock sacral abscess with necrosis and debridement of a left ischial pressure sore along with bone biopsy. The patient is having just mild pain at the surgical site. OBJECTIVE: The patient's surgical site on the left are clean without any evidence of infection. Dressings were changed. ASSESSMENT: 1. LEFT SACRAL PRESSURE SORE WITH ABSCESS, STATUS POST INCISION AND DRAINAGE. Cultures are pending at the current time. Cultures of the drainage when he first came in grew out MRSA and Proteus. He currently is on vancomycin. I will await final cultures from the wound to change the antibiotic regimen if necessary. 2. LEFT ISCHIAL PRESSURE SORE THAT HAS BEEN CHRONIC. MRI was suggestive of an osteomyelitis, mild. On exploration, I do not find any evidence of exposed bone, however one area was rough and biopsy was obtained, which is pending at the current time. I have explained to the patient that these are difficult wounds, especially as chronic as this one. He does use his legs and is able to exercise, which is unusual for him with pressure sores, although he does have decreased strength. Therefore, I would recommend that he followup with Plastic Surgery at some point in order to discuss the various options. Because it was a deep wound and so chronic along with extensive undermining, I do not feel that it will heal with just medical treatment and wound care. It is possible that it would, but I would recommend that he still followup with Plastic Surgery. 3. FLUID CORRECTION IN THE RIGHT BUTTOCK OF UNKNOWN ETIOLOGY. CT scan felt that it may be an abscess. I recommend that he undergo percutaneous aspiration/drainage of this and to see if it truly is an abscess or not. PLAN: 1. Local wound care to the buttocks. 2. Would recommend followup with Plastic Surgery as an outpatient. 3. Percutaneous drainage of the right buttock abnormality in the a.m. DICTATING PHYSICIAN: LIZBETH WOODWARD M.D. [id number] PHY#: [id number] ID: [id number] JOB#: [id number] ACCT: [id number] cc: >
[2017-02-07] MEDS: ZOLPIDEM TARTRATE 5 MG TABLET PO PRN ×2 (00:55→22:48)
[2017-02-07] MEDS: DIPHENHYDRAMINE HCL 50 MG/ML VIAL IV PRN ×4 (00:55→22:51)
[2017-02-07] MEDS: MORPHINE SULFATE 10 MG/ML INJ IV PRN ×4 (05:10→22:47)
[2017-02-07] MEDS: VANCOMYCIN HCL 750 MG in DEXTROSE 5%-WATER 250 ML IV SCH ×3 (05:16→23:02)
[2017-02-07 05:28] LABS: ABSOLUTE EOSINOPHILS # (AUTO) 0.3 10^3/uL (0.0-0.6); ABSOLUTE LYMPHOCYTES (AUTO) 0.9 10^3/uL (0.5-4.7); ABSOLUTE MONOCYTES (AUTO) 0.4 10^3/uL (0.1-1.4); ABSOLUTE NEUT (AUTO) 1.6 10^3/uL (1.7-8.2); BASOPHILS % (AUTO) 0.2 % (0-2); EOSINOPHILS % (AUTO) 8.5 % (0-6); HEMATOCRIT 37.4 % (37.9-51.0); HEMOGLOBIN 12.2 g/dL (13.5-17.0); HGB HCT DIFFERENCE -0.8; LYMPHOCYTES % (AUTO) 27.7 % (13-45); MEAN CORPUSCULAR HEMOGLOBIN 28.4 pg (27.0-33.4); MEAN CORPUSCULAR HGB CONC 32.6 g/dL (32.0-36.0); MEAN CORPUSCULAR VOLUME 87 fl (80-97); MONOCYTES % (AUTO) 13.9 % (3-13); RED BLOOD COUNT 4.29 10^6/uL (4.35-5.55); SEGMENTED NEUTROPHILS % (AUTO) 49.7 % (42-78); WHITE BLOOD COUNT 3.1 10^3/uL (4.0-10.5)
[2017-02-07 05:40] LABS: ANION GAP 11 (5-19); BLOOD UREA NITROGEN 8 mg/dL (7-20); CALCIUM 8.6 mg/dL (8.4-10.2); CARBON DIOXIDE 23 mmol/L (22-30); CHLORIDE 107 mmol/L (98-107); CREATININE RESULT 0.79 mg/dL (0.52-1.25); GLUCOSE 95 mg/dL (75-110); POTASSIUM 4.1 mmol/L (3.6-5.0); SODIUM 140.9 mmol/L (137-145)
[2017-02-07] MEDS: OXYCODONE-ACETAMINOPHEN 5-325 MG TABLET PO PRN ×3 (08:27→20:01)
[2017-02-07] MEDS: LACTOBACILLUS ACIDOPHILUS 250 MG TAB PO SCH ×2 (09:22→17:29)
[2017-02-07] MEDS: DOCUSATE SODIUM 100 MG CAPSULE PO SCH ×2 (09:22→17:30)
--- NOTE | 2017-02-07 13:09 | PDOC PROGRESS REPORT ---
Subjective Progress Note for:: 02/07/17 Subjective:: Patient is seen on morning rounds. He is resting in bed. He states his pain in his left buttock is improved. He states 6 months ago he had a similar abcess on the right buttock and was treated with IV vancomycin. He states he did not complete the full course of treatment as prescribed. He was scheduled to have a CT guided drainage of this area this morning. He does not want to have this done. He denies any cough, dyspnea or shortness of breath. He denies any nausea , vomiting or abdominal pain. He denies any fevers or chills. Physical Exam Vital Signs: Temp Pulse Resp BP Pulse Ox 97.7 F 76 18 118/74 98 02/07/17 11:21 02/07/17 11:21 02/07/17 11:21 02/07/17 11:21 02/07/17 11:21 Intake & Output 02/06/17 02/07/17 02/08/17 06:59 06:59 06:59 Intake Total 3151 1845 0 Output Total 2100 750 200 Balance 1051 1095 -200 Weight 70.4 kg 65.8 kg General appearance: PRESENT: no acute distress, well-developed Head exam: PRESENT: atraumatic, normocephalic Eye exam: PRESENT: conjunctiva pink, EOMI, PERRLA. ABSENT: scleral icterus Ear exam: PRESENT: normal external ear exam Mouth exam: PRESENT: moist, tongue midline Neck exam: ABSENT: carotid bruit, JVD, lymphadenopathy, thyromegaly Respiratory exam: PRESENT: clear to auscultation lolita. ABSENT: rales, rhonchi, wheezes Cardiovascular exam: PRESENT: RRR. ABSENT: diastolic murmur, rubs, systolic murmur Pulses: PRESENT: normal dorsalis pedis pul GI/Abdominal exam: PRESENT: normal bowel sounds, soft. ABSENT: distended, guarding, mass, organolmegaly, rebound, tenderness Rectal exam: PRESENT: deferred Extremities exam: PRESENT: full ROM. ABSENT: calf tenderness, clubbing, pedal edema Musculoskeletal exam: PRESENT: full ROM, tenderness, other - left buttocks Neurological exam: PRESENT: alert, awake, oriented to person, oriented to place , oriented to time, oriented to situation, CN II-XII grossly intact, other - Partial paralysis of lower extremities. ABSENT: motor sensory deficit Psychiatric exam: PRESENT: appropriate affect, normal mood. ABSENT: homicidal ideation, suicidal ideation Skin exam: PRESENT: erythema - large wound of left buttocks packed with wet to dry dressing, warm, other Results Laboratory Results: 02/07/17 04:48 02/07/17 04:48 02/06/17 02/07/17 02/07/17 14:00 04:48 04:48 WBC 3.1 L RBC 4.29 L Hgb 12.2 L Hct 37.4 L MCV 87 MCH 28.4 MCHC 32.6 RDW 14.0 Plt Count 125 L Seg Neutrophils % 49.7 Lymphocytes % 27.7 Monocytes % 13.9 H Eosinophils % 8.5 H Basophils % 0.2 Absolute Neutrophils 1.6 L Absolute Lymphocytes 0.9 Absolute Monocytes 0.4 Absolute Eosinophils 0.3 Absolute Basophils 0.0 Sodium 140.9 Potassium 4.1 Chloride 107 Carbon Dioxide 23 Anion Gap 11 BUN 8 Creatinine 0.85 0.79 Est GFR ( Amer) > 60 > 60 Est GFR (Non-Af Amer) > 60 > 60 Glucose 95 Calcium 8.6 02/04/17 10:15 Blood Blood Culture - Final Mrsa (Meth Resis Staph Aureus) Impressions: Abdomen/Pelvis CT 02/03/17 00:00 IMPRESSION: 1. Bilateral inguinal adenopathy left greater than right. No focal hernia. 2. Inflammatory changes surrounding both the inferior pubic rami with a focal 2.6 cm fluid collection on the right consistent with developing abscess. Pelvis MRI 02/04/17 00:00 IMPRESSION: Findings concerning for osteomyelitis in the left ischial ramus- tuberosity. Findings suggesting abscess in the right ischial soft tissues. Assessment & Plan - Diagnosis (1) Sepsis Qualifiers: Sepsis type: sepsis due to unspecified organism Qualified Code(s): A41.9 - Sepsis, unspecified organism Is this a current diagnosis for this admission?: YesPlan: Improved after IV hydration and antibiotic therapy. Resolved (2) Abscess Is this a current diagnosis for this admission?: YesPlan: Patient has an large abcess of the left upper gluteal region with purulent discharge. Patient will be started on broad spectrum antibiotics after blood cultures x 2 one out of 2 positive for MRSA. Bone biopsy positive for MRSA. Repeat blood cultures pending. Will need PICC and 6 week abx treatment once blood cultures negative (3) Osteomyelitis Qualifiers: Osteomyelitis location: other site Is this a current diagnosis for this admission?: YesPlan: MRI pelvis showed osteomyelitis of left ischial tuberosity. Bone biopsy pending from surgery yesterday Will need at least 6 weeks of IV antibiotics . Blood culture x 1 and wound cultures growing MRSA. Will repeat blood cultures in am once clear can have PICC placed (4) Decubitus ulcer of left buttock, stage 3 Is this a current diagnosis for this admission?: YesPlan: IV broad spectrum antibiotics, local wound care consult with general surgery (5) Lymphadenopathy Is this a current diagnosis for this admission?: YesPlan: Secondary to left gluteal abcess (6) Paraplegia, incomplete Is this a current diagnosis for this admission?: YesPlan: Secondary to trauma partial paralysis of bilateral lower extremities - Time Time Spent with patient: 25-34 minutes Critical Time spent with patient: 15-24 minutes Medications reviewed and adjusted accordingly: Yes Anticipated discharge: Home with Homehealth - Inpatient Certification Medical Necessity: Need For IV Fluids, Need for Pain Control, Need for IV Antibiotics, Need for Surgery
[2017-02-07] MEDS: ALPRAZOLAM 0.5 MG TABLET PO PRN ×2 (14:13→22:48)
--- NOTE | 2017-02-07 16:03 | PDOC PROGRESS REPORT ---
Subjective Progress Note for:: 02/07/17 Subjective:: Patient feels fine, denies fever, tolerating a diet. Imaging studies reviewed with Dr. Ogden; also discussed with patient. Right- sided buttock abnormality on MR likely of no clinical significance. Patient's dressings have been changed. Drainage minimal. Physical Exam Vital Signs: Temp Pulse Resp BP Pulse Ox 97.7 F 76 18 118/74 98 02/07/17 11:21 02/07/17 11:21 02/07/17 11:21 02/07/17 11:21 02/07/17 11:21 Intake & Output 02/06/17 02/07/17 02/08/17 06:59 06:59 06:59 Intake Total 3151 1845 0 Output Total 2100 750 200 Balance 1051 1095 -200 Weight 70.4 kg 65.8 kg General appearance: PRESENT: no acute distress Skin exam: PRESENT: other - Patient rolled on the right lateral decubitus position. The left parasacral and left ischial wounds are clean granulating with negligible debris; no drainage no foul smell. Right buttock cheek examined carefully. No pathology identified. Multiple operative scars on the back and flank. Results Laboratory Results: 02/07/17 04:48 02/07/17 04:48 02/07/17 02/07/17 04:48 04:48 WBC 3.1 L RBC 4.29 L Hgb 12.2 L Hct 37.4 L MCV 87 MCH 28.4 MCHC 32.6 RDW 14.0 Plt Count 125 L Seg Neutrophils % 49.7 Lymphocytes % 27.7 Monocytes % 13.9 H Eosinophils % 8.5 H Basophils % 0.2 Absolute Neutrophils 1.6 L Absolute Lymphocytes 0.9 Absolute Monocytes 0.4 Absolute Eosinophils 0.3 Absolute Basophils 0.0 Sodium 140.9 Potassium 4.1 Chloride 107 Carbon Dioxide 23 Anion Gap 11 BUN 8 Creatinine 0.79 Est GFR ( Amer) > 60 Est GFR (Non-Af Amer) > 60 Glucose 95 Calcium 8.6 02/04/17 10:15 Blood Blood Culture - Final Mrsa (Meth Resis Staph Aureus) Impressions: Abdomen/Pelvis CT 02/03/17 00:00 IMPRESSION: 1. Bilateral inguinal adenopathy left greater than right. No focal hernia. 2. Inflammatory changes surrounding both the inferior pubic rami with a focal 2.6 cm fluid collection on the right consistent with developing abscess. Pelvis MRI 02/04/17 00:00 IMPRESSION: Findings concerning for osteomyelitis in the left ischial ramus- tuberosity. Findings suggesting abscess in the right ischial soft tissues. Assessment & Plan - Diagnosis (1) Decubitus ulcer of left buttock, stage 3 Is this a current diagnosis for this admission?: YesPlan: Assessment: Stable pressure ulcers of the parasacral and ischial region status post operative debridement, growing MRSA and Proteus, on intravenous vancomycin. Radiographically and clinically consistent with osteomyelitis of the pelvis without evidence of sepsis No evidence of acute right buttock pathology; likely chronic changes on MRI Plan: 1. Aborted any attempt at draining right buttock 2. Activate occupational and physical therapy, and consideration for outpatient rehab services 3. Anticipate PICC line placement, and continuation of intravenous antibiotics and outpatient basis. 4. Set patient up for advanced wound center care.
[2017-02-08] MEDS: OXYCODONE-ACETAMINOPHEN 5-325 MG TABLET PO PRN ×4 (05:16→22:52)
[2017-02-08] MEDS: MORPHINE SULFATE 10 MG/ML INJ IV PRN ×4 (06:16→20:40)
[2017-02-08] MEDS: DIPHENHYDRAMINE HCL 50 MG/ML VIAL IV PRN ×3 (06:50→22:48)
[2017-02-08] MEDS: VANCOMYCIN HCL 750 MG in DEXTROSE 5%-WATER 250 ML IV SCH ×3 (06:54→22:50)
--- NOTE | 2017-02-08 11:00 | RADIOLOGY REPORT (SQ) ---
EXAM DESCRIPTION: PICC INSERTION; U/S GUIDE FOR VASCULAR ACCESS; FLUORO/CV PLACEMENT COMPLETED DATE/TIME: 02/08/2017 10:40 am REASON FOR STUDY: IV ABX COMPARISON: None. FLUOROSCOPY TIME: 1 minutes 1 second. 2 images saved to PACS. TECHNIQUE: Fluoroscopic and ultrasound guided PICC placement. LIMITATIONS: None. PROCEDURE: After written consent and assessment were obtained, the patient was brought into the fluo roscopy room and place supine on the table. Ultrasound was used on the patient's right arm for PICC access. The right arm was prepped and draped in a sterile fashion along with the ultrasound probe. Th e entry site was anesthetized with 1% lidocaine. A 21 gauge 7 cm needle was advanced through the skin and into the basilic vein under live ultrasound guidance. An ultrasound image was saved to PACS con firming access site. A .018 guide wire was then inserted through the needle and into the venous syst em. The needle was the removed and an 11 blade scalpel was used to make a 1cm skin incision. A 5 fr peel-away sheath was advanced over the wire and into the venous system. A measurement was then made u sing the existing wire and live fluoroscopic guidance. The wire was then removed and the trimmed. The PICC was advanced through the peel-away sheath and into the venous system. The peel-away sheath was removed and the catheter was adhered to the patients arm with a stat lock. The catheter was then aspi rated and flushed and a sterile bandage was placed over the access site. A fluoroscopic spot image w as saved to PACS confirming the catheter tip within the superior vena cava. IMPRESSION: SUCCESSFUL PLACEMENT OF A 5 FR DUAL LUMEN 38 CM PICC IN THE RIGHT BASILIC VEIN. COMMENT: Patient medication list reviewed: Yes- Quality ID# [id number]:Eligible professional attests to doc umenting in the medical record they obtained, updated, or reviewed the patient's current medications. . Quality ID 145: Final reports for procedures using fluoroscopy that document radiation exposure gene marjorie, or exposure time and number of fluorographic images (if radiation exposure indices are not avail able) Quality ID #76: The patient was prepped and draped using maximum sterile barrier technique including cap, mask, sterile gown, sterile gloves, a large sterile sheet, hand hygiene, and 2% Chlorhexidine fo r cutaneous antisepsis. When ultrasound is used, sterile ultrasound techniques are followed requiring sterile gel and sterile probes. TECHNICAL DOCUMENTATION: JOB ID: [id number] [employer]- All Rights Reserved
[2017-02-08] MEDS: LACTOBACILLUS ACIDOPHILUS 250 MG TAB PO SCH ×2 (11:07→17:53)
[2017-02-08] MEDS: DOCUSATE SODIUM 100 MG CAPSULE PO SCH ×2 (11:07→17:45)
--- NOTE | 2017-02-08 13:16 | PDOC PROGRESS REPORT ---
Subjective Progress Note for:: 02/08/17 Subjective:: reason for visit: f/u MRSA bacteremia and skin ulcer with cellulitis hospital course: per other's notes - "Patient is a 26-year-old male who presents tp [facility] emergency department with 2 complaints. Primary concern is a left inguinal hernia these had for a couple years but over the past 3 days it has become firm, tender and does not reduce. Patient denies any diarrhea, constipation. admits to fever, chills, nausea without vomiting. Also presents with complaint of left lower back swelling, tenderness for the past 4 days. Patient suffered a spinal cord injury in 2014 which is left him with partial paralysis of the lower extremities. Patient able to move his lower extremities but is unable to bear weight and is wheelchair-bound. Otherwise he denies any history of MRSA. He is originally from [place] and is here visiting family. Admits to tobacco use, denies any drug use, occasional alcohol use." admitted for IV abx and surgical debridement, wound and blood cultures growing MRSA and proteus. he remains on vanc. he denies chest pain, palpitations, fever/chills, n/v/d. ROS: all systems reviewed, as above, remaining systems negative. Physical Exam Vital Signs: Temp Pulse Resp BP Pulse Ox 97.9 F 79 16 100/59 L 97 02/08/17 11:41 02/08/17 11:41 02/08/17 11:41 02/08/17 11:41 02/08/17 11:41 Intake & Output 02/07/17 02/08/17 02/09/17 06:59 06:59 06:59 Intake Total 1845 1140 Output Total 750 710 Balance 1095 430 Weight 65.8 kg 65.8 kg General appearance: PRESENT: no acute distress, thin, well-developed Head exam: PRESENT: atraumatic, normocephalic Eye exam: PRESENT: EOMI. ABSENT: conjunctival injection, scleral icterus Respiratory exam: PRESENT: clear to auscultation lolita. ABSENT: accessory muscle use Cardiovascular exam: PRESENT: RRR. ABSENT: systolic murmur Pulses: PRESENT: normal radial pulses, normal dorsalis pedis pul GI/Abdominal exam: PRESENT: normal bowel sounds, soft. ABSENT: tenderness Musculoskeletal exam: PRESENT: full ROM. ABSENT: ambulatory - no use of his feet Neurological exam: PRESENT: alert, awake, oriented to person, oriented to place , oriented to time, oriented to situation Skin exam: PRESENT: warm, other - ulcers of the buttock, heavily bandaged Results Laboratory Results: 02/07/17 04:48 02/07/17 04:48 02/05/17 09:37 Buttocks - Decubitis Ulcer Gram Stain - Final 02/05/17 09:37 Buttocks - Decubitis Ulcer Wound Culture - Final Mrsa (Meth Resis Staph Aureus) No Anaerobic Organisms 02/05/17 09:37 Hip - Decubitis Ulcer Left Hip Gram Stain - Final 02/05/17 09:37 Hip - Decubitis Ulcer Left Hip Wound Culture - Final Mrsa (Meth Resis Staph Aureus) No Anaerobic Organisms 02/04/17 10:15 Blood Blood Culture - Final Mrsa (Meth Resis Staph Aureus) Impressions: Abdomen/Pelvis CT 02/03/17 00:00 IMPRESSION: 1. Bilateral inguinal adenopathy left greater than right. No focal hernia. 2. Inflammatory changes surrounding both the inferior pubic rami with a focal 2.6 cm fluid collection on the right consistent with developing abscess. Pelvis MRI 02/04/17 00:00 IMPRESSION: Findings concerning for osteomyelitis in the left ischial ramus- tuberosity. Findings suggesting abscess in the right ischial soft tissues. Guidance Fluoroscopy 02/08/17 00:00 IMPRESSION: SUCCESSFUL PLACEMENT OF A 5 FR DUAL LUMEN 38 CM PICC IN THE RIGHT BASILIC VEIN. Interventional Vascular Procedure 02/08/17 00:00 IMPRESSION: SUCCESSFUL PLACEMENT OF A 5 FR DUAL LUMEN 38 CM PICC IN THE RIGHT BASILIC VEIN. PICC Line Insertion 02/08/17 00:00 IMPRESSION: SUCCESSFUL PLACEMENT OF A 5 FR DUAL LUMEN 38 CM PICC IN THE RIGHT BASILIC VEIN. Status: Imported from PACS Assessment & Plan - Diagnosis (1) Decubitus ulcer of left buttock, stage 3 Is this a current diagnosis for this admission?: YesPlan: s/p surgical debridement, continue abx with vanc and add cipro (2) Osteomyelitis Qualifiers: Osteomyelitis location: other site Is this a current diagnosis for this admission?: YesPlan: for PICC line today, will need 6 wks of abx (3) Paraplegia, incomplete Is this a current diagnosis for this admission?: Yes - Time Time Spent with patient: 25-34 minutes Medications reviewed and adjusted accordingly: Yes Anticipated discharge: Home with Homehealth Within: within 24 hours
[2017-02-08] MEDS: ALPRAZOLAM 0.5 MG TABLET PO PRN ×2 (13:48→22:53)
[2017-02-08] MEDS: CIPROFLOXACIN HCL 500 MG TABLET PO SCH (22:52)
[2017-02-08] MEDS: ZOLPIDEM TARTRATE 5 MG TABLET PO PRN (22:53)
[2017-02-09] MEDS: MORPHINE SULFATE 10 MG/ML INJ IV PRN ×4 (00:55→17:00)
[2017-02-09] MEDS: OXYCODONE-ACETAMINOPHEN 5-325 MG TABLET PO PRN ×4 (05:24→22:46)
[2017-02-09] MEDS: DIPHENHYDRAMINE HCL 50 MG/ML VIAL IV PRN ×3 (05:26→18:46)
[2017-02-09] MEDS: VANCOMYCIN HCL 750 MG in DEXTROSE 5%-WATER 250 ML IV SCH ×3 (05:26→23:15)
[2017-02-09] MEDS: CIPROFLOXACIN HCL 500 MG TABLET PO SCH ×2 (09:17→22:46)
[2017-02-09] MEDS: LACTOBACILLUS ACIDOPHILUS 250 MG TAB PO SCH ×2 (09:17→17:00)
[2017-02-09] MEDS: DOCUSATE SODIUM 100 MG CAPSULE PO SCH (09:18)
[2017-02-09] MEDS ORDERED: DOCUSATE SODIUM 100 MG CAPSULE PO PRN (12:34)
--- NOTE | 2017-02-09 12:37 | PDOC PROGRESS REPORT ---
Subjective Progress Note for:: 02/09/17 Subjective:: reason for visit: f/u MRSA bacteremia and skin ulcer with cellulitis hospital course: per other's notes - "Patient is a 26-year-old male who presents tp [facility]'s emergency department with 2 complaints. Primary concern is a left inguinal hernia these had for a couple years but over the past 3 days it has become firm, tender and does not reduce. Patient denies any diarrhea, constipation. admits to fever, chills, nausea without vomiting. Also presents with complaint of left lower back swelling, tenderness for the past 4 days. Patient suffered a spinal cord injury in 2014 which is left him with partial paralysis of the lower extremities. Patient able to move his lower extremities but is unable to bear weight and is wheelchair-bound. Otherwise he denies any history of MRSA. He is originally from [place] and is here visiting family. Admits to tobacco use, denies any drug use, occasional alcohol use." admitted for IV abx and surgical debridement, wound and blood cultures growing MRSA and proteus. he remains on vanc. he denies chest pain, palpitations, fever/chills, n/v/d. states his pain is poorly controlled and he needs more percocets and xanax "if he's going to make it", all the while resting comfortably in bed clearing in no distress, arms folded behind his head, smiling, laughing and chatting comfortably with me. ROS: all systems reviewed, as above, remaining systems negative. Physical Exam Vital Signs: Temp Pulse Resp BP Pulse Ox 97.9 F 66 16 105/57 L 99 02/09/17 08:15 02/09/17 08:15 02/09/17 08:15 02/09/17 08:15 02/09/17 08:15 Intake & Output 02/08/17 02/09/17 02/10/17 06:59 06:59 06:59 Intake Total 1140 3100 Output Total 710 Balance 430 3100 Weight 65.8 kg 65.8 kg General appearance: PRESENT: no acute distress, thin, well-developed Head exam: PRESENT: atraumatic, normocephalic Eye exam: PRESENT: EOMI. ABSENT: conjunctival injection, scleral icterus Respiratory exam: PRESENT: clear to auscultation lolita. ABSENT: accessory muscle use Cardiovascular exam: PRESENT: RRR. ABSENT: systolic murmur Pulses: PRESENT: normal radial pulses, normal dorsalis pedis pul GI/Abdominal exam: PRESENT: normal bowel sounds, soft. ABSENT: tenderness Musculoskeletal exam: PRESENT: full ROM. ABSENT: ambulatory - no use of his feet Neurological exam: PRESENT: alert, awake, oriented to person, oriented to place , oriented to time, oriented to situation Skin exam: PRESENT: warm, other - ulcers of the buttock, heavily bandaged Results Laboratory Results: 02/07/17 04:48 02/07/17 04:48 02/05/17 09:37 Buttocks - Decubitis Ulcer Gram Stain - Final 02/05/17 09:37 Buttocks - Decubitis Ulcer Wound Culture - Final Mrsa (Meth Resis Staph Aureus) No Anaerobic Organisms 02/05/17 09:37 Hip - Decubitis Ulcer Left Hip Gram Stain - Final 02/05/17 09:37 Hip - Decubitis Ulcer Left Hip Wound Culture - Final Mrsa (Meth Resis Staph Aureus) No Anaerobic Organisms Impressions: Abdomen/Pelvis CT 02/03/17 00:00 IMPRESSION: 1. Bilateral inguinal adenopathy left greater than right. No focal hernia. 2. Inflammatory changes surrounding both the inferior pubic rami with a focal 2.6 cm fluid collection on the right consistent with developing abscess. Pelvis MRI 02/04/17 00:00 IMPRESSION: Findings concerning for osteomyelitis in the left ischial ramus- tuberosity. Findings suggesting abscess in the right ischial soft tissues. Guidance Fluoroscopy 02/08/17 00:00 IMPRESSION: SUCCESSFUL PLACEMENT OF A 5 FR DUAL LUMEN 38 CM PICC IN THE RIGHT BASILIC VEIN. Interventional Vascular Procedure 02/08/17 00:00 IMPRESSION: SUCCESSFUL PLACEMENT OF A 5 FR DUAL LUMEN 38 CM PICC IN THE RIGHT BASILIC VEIN. PICC Line Insertion 02/08/17 00:00 IMPRESSION: SUCCESSFUL PLACEMENT OF A 5 FR DUAL LUMEN 38 CM PICC IN THE RIGHT BASILIC VEIN. Assessment & Plan - Diagnosis (1) Decubitus ulcer of left buttock, stage 3 Is this a current diagnosis for this admission?: Yes (2) Osteomyelitis Qualifiers: Osteomyelitis location: other site Is this a current diagnosis for this admission?: Yes (3) Paraplegia, incomplete Is this a current diagnosis for this admission?: Yes - Time Time Spent with patient: 15-24 minutes Anticipated discharge: Home with Homehealth - he is now ready to go anytime, waiting on catalytic case operator to arrange home abx
[2017-02-09] MEDS: ALPRAZOLAM 0.5 MG TABLET PO PRN ×2 (15:51→22:54)
[2017-02-09] MEDS: ZOLPIDEM TARTRATE 5 MG TABLET PO PRN (22:54)
[2017-02-09] MEDS ORDERED: VANCOMYCIN HCL INJ 1000 MG VIAL ONE (22:56)
[2017-02-10] MEDS: MORPHINE SULFATE 10 MG/ML INJ IV PRN ×2 (00:19→06:06)
[2017-02-10] MEDS: DIPHENHYDRAMINE HCL 50 MG/ML VIAL IV PRN ×2 (00:46→06:58)
[2017-02-10] MEDS: OXYCODONE-ACETAMINOPHEN 5-325 MG TABLET PO PRN (04:30)
[2017-02-10 04:46] VITALS: BP 112/62
[2017-02-10] MEDS ORDERED: VANCOMYCIN HCL INJ 1000 MG VIAL ONE (05:15)
[2017-02-10] MEDS: VANCOMYCIN HCL 750 MG in DEXTROSE 5%-WATER 250 ML IV SCH (06:06)
[2017-02-10] MEDS: ALPRAZOLAM 0.5 MG TABLET PO PRN (07:08)
--- NOTE | 2017-02-10 11:59 | PDOC DISCHARGE SUMMARY ---
General - Admit/Disc Date/PCP Admission Date/Primary Care Provider: 02/04/17 07:26 Discharge Date: 02/10/17 - Discharge Diagnosis (1) Decubitus ulcer of left buttock, stage 3 Is this a current diagnosis for this admission?: YesSummary: MRSA and Proteus cultured from the wound with bone showing osteomyelitis so he will need 6 wks of IV abx for the MRSA and oral cipro for the proteus. f/u with PCP of choice for management of vanc. f/u in Dr Torres's office in one week for wound check. f/u with wound clinic weekly (2) Osteomyelitis Is this a current diagnosis for this admission?: YesSummary: stable; as above (3) Paraplegia, incomplete Is this a current diagnosis for this admission?: Yes - Additional Information Resuscitation Status: Full Code Discharge Diet: As Tolerated Discharge Activity: Activity As Tolerated Home Medications: Acetaminophen [Tylenol 325 mg Tablet] 650 mg PO Q4HP PRN tablet 02/10/17 Alprazolam [Xanax 0.5 mg Tablet] 0.5 mg PO Q6HP PRN #10 tablet 02/10/17 Ciprofloxacin HCl [Cipro 500 mg Tablet] 500 mg PO Q12 #30 tablet 02/10/17 Lactobacillus Acidophilus [Acidophilus Lactobacilli] 1 each PO BID #60 capsule 02/10/17 Oxycodone HCl/Acetaminophen [Percocet 5-325 mg Tablet] 2 tab PO Q4HP PRN #20 tablet 02/10/17 Vancomycin/0.9 % Sod Chloride [Vanco-0.9% NaCl 750 mg/150 ml] 750 mg IV Q8 42 Days 02/10/17 History of Present Illness History of Present Illness: RIDGE HUTTON is a 26 year old male Hospital Course Hospital Course: Patient denies any diarrhea, constipation. admits to fever, chills, nausea without vomiting. Also presents with complaint of left lower back swelling, tenderness for the past 4 days. Patient suffered a spinal cord injury in 2014 which is left him with partial paralysis of the lower extremities. Patient able to move his lower extremities but is unable to bear weight and is wheelchair-bound. Otherwise he denies any history of MRSA. He is originally from [place] and is here visiting family. Admits to tobacco use, denies any drug use, occasional alcohol use." admitted for IV abx and surgical debridement, wound and blood cultures growing MRSA and proteus. he remains on vanc. he denies chest pain, palpitations, fever/chills, n/v/d. states his pain is poorly controlled and he needs more percocets and xanax "if he's going to make it", all the while resting comfortably in bed clearing in no distress, arms folded behind his head, smiling, laughing and chatting comfortably with me. he underwent surgical debridement and cultures show MRSA and Proteus. PICC line placed and arrangements made for outpt continued abx and wound care. he is stable for d/c at this time. f/u with surgery in one week for wound ck; f/u with wound care clinic. return to the ED for worsening condition. Physical Exam Vital Signs: Temp Pulse Resp BP Pulse Ox 97.5 F 80 14 112/62 100 02/10/17 08:33 02/10/17 08:33 02/10/17 08:33 02/10/17 08:33 02/10/17 08:33 Intake & Output 02/09/17 02/10/17 02/11/17 06:59 06:59 06:59 Intake Total 3100 2330 Balance 3100 2330 Weight 65.8 kg 65.1 kg General appearance: PRESENT: thin, well-developed Eye exam: PRESENT: EOMI Respiratory exam: PRESENT: clear to auscultation lolita. ABSENT: accessory muscle use Cardiovascular exam: PRESENT: RRR. ABSENT: systolic murmur Neurological exam: PRESENT: alert, awake, oriented to person, oriented to place , oriented to time Results Laboratory Results: 02/07/17 04:48 02/07/17 04:48 Impressions: Abdomen/Pelvis CT 02/03/17 00:00 IMPRESSION: 1. Bilateral inguinal adenopathy left greater than right. No focal hernia. 2. Inflammatory changes surrounding both the inferior pubic rami with a focal 2.6 cm fluid collection on the right consistent with developing abscess. Pelvis MRI 02/04/17 00:00 IMPRESSION: Findings concerning for osteomyelitis in the left ischial ramus- tuberosity. Findings suggesting abscess in the right ischial soft tissues. Guidance Fluoroscopy 02/08/17 00:00 IMPRESSION: SUCCESSFUL PLACEMENT OF A 5 FR DUAL LUMEN 38 CM PICC IN THE RIGHT BASILIC VEIN. Interventional Vascular Procedure 02/08/17 00:00 IMPRESSION: SUCCESSFUL PLACEMENT OF A 5 FR DUAL LUMEN 38 CM PICC IN THE RIGHT BASILIC VEIN. PICC Line Insertion 02/08/17 00:00 IMPRESSION: SUCCESSFUL PLACEMENT OF A 5 FR DUAL LUMEN 38 CM PICC IN THE RIGHT BASILIC VEIN. Qualifiers PATEINT BEING DISCHARGED WITH ANY OF THE FOLLOWING DIAGNOSIS?: No VTE patient discharged on overlapping Therapy?: No Reason(s) for not prescribing Overlap Therapy:: Not indicated Plan Discharge Plan: wound care clinic and surgical f/u for wound ck; continue abx for 6 wks
== END 2017-02-10 09:30 | disposition home health service (06) | DRG 853 ==
LOC: ER 17:16 → 3W 02-04 07:26 → EH 02-04 09:04 → UNDOADMIN 02-04 09:04 → 3W 02-04 10:33 → EH 02-04 10:33 → 5 02-07 16:55
PROVIDERS: ADMIT Family Medicine; ATTEND Family Medicine
PROC: 0QB30ZX Excision of Left Pelvic Bone, Open Approach, Diagnostic (ICD-10-PCS; 2017-02-05)
PROC: 0KBP0ZZ Excision of Left Hip Muscle, Open Approach (ICD-10-PCS; principal; 2017-02-05 08:00)
PROC: 0JB70ZZ Excision of Back Subcutaneous Tissue and Fascia, Open Approach (ICD-10-PCS; 2017-02-05 08:00)
PROC: 02HV33Z Insertion of Infusion Device into Superior Vena Cava, Percutaneous Approach (ICD-10-PCS; 2017-02-08)
PROC: B548ZZA Ultrasonography of Superior Vena Cava, Guidance (ICD-10-PCS; 2017-02-08)
PROC: B518ZZA Fluoroscopy of Superior Vena Cava, Guidance (ICD-10-PCS; 2017-02-08)
DX: A41.02 Sepsis due to Methicillin resistant Staphylococcus aureus (principal); L89.323 Pressure ulcer of left buttock, stage 3; M86.8X8 Other osteomyelitis, other site; L03.317 Cellulitis of buttock; L89.159 Pressure ulcer of sacral region, unspecified stage; K40.90 Unilateral inguinal hernia, without obstruction or gangrene, not specified as recurrent; B95.62 Methicillin resistant Staphylococcus aureus infection as the cause of diseases classified elsewhere; B96.4 Proteus (mirabilis) (morganii) as the cause of diseases classified elsewhere; M54.9 Dorsalgia, unspecified; G83.89 Other specified paralytic syndromes; Z99.3 Dependence on wheelchair
CPT/HCPCS: 00300; 36415; 36569; 72197; 74177; 76937; 77001; 80048; 80053; 80202; 81001; 82565; 85025; 85610; 87040; 87070; 87075; 87077; 87186; 87205; 88305; 88311; 96361; 96365; 99285; A9576; J0131; J0295; J1100; J1200; J1642; J2250; J2270; J2405; J2543; J2704; J3010; J3370; J3490; J7030; J7060

== ENCOUNTER 2017-03-06 14:35 | Emergency (ER) | payer MEDICAID ==
[2017-03-06 17:42] LABS: ABSOLUTE LYMPHOCYTES (AUTO) 0.3 10^3/uL (0.5-4.7); ABSOLUTE MONOCYTES (AUTO) 0.2 10^3/uL (0.1-1.4); ABSOLUTE NEUT (AUTO) 3.7 10^3/uL (1.7-8.2); BASOPHILS % (AUTO) 1.1 % (0-2); HEMATOCRIT 38.6 % (37.9-51.0); HEMOGLOBIN 13.1 g/dL (13.5-17.0); HGB HCT DIFFERENCE 0.7; MEAN CORPUSCULAR HEMOGLOBIN 29.2 pg (27.0-33.4); MEAN CORPUSCULAR HGB CONC 33.9 g/dL (32.0-36.0); MEAN CORPUSCULAR VOLUME 86 fl (80-97); MONOCYTES % (AUTO) 4.4 % (3-13); RED BLOOD COUNT 4.48 10^6/uL (4.35-5.55); RED CELL DISTRIBUTION WIDTH 14.6 % (11.5-14.0); SEGMENTED NEUTROPHILS % (AUTO) 88.5 % (42-78); WHITE BLOOD COUNT 4.2 10^3/uL (4.0-10.5)
[2017-03-06 18:04] LABS: ALANINE AMINOTRANSFERASE 27 U/L (21-72); ALBUMIN 4.1 g/dL (3.5-5.0); ALKALINE PHOSPHATASE 77 U/L (38-126); ANION GAP 14 (5-19); ASPARTATE AMINO TRANSFERASE 23 U/L (17-59); BILIRUBIN,DIRECT 0.4 mg/dL (0.0-0.4); BILIRUBIN,TOTAL 0.8 mg/dL (0.2-1.3); BLOOD UREA NITROGEN 21 mg/dL (7-20); CALCIUM 9.2 mg/dL (8.4-10.2); CARBON DIOXIDE 22 mmol/L (22-30); CHLORIDE 101 mmol/L (98-107); CREATININE RESULT 1.27 mg/dL (0.52-1.25); GLUCOSE 114 mg/dL (75-110); POTASSIUM 3.9 mmol/L (3.6-5.0); SODIUM 137.2 mmol/L (137-145); TOTAL PROTEIN 8.1 g/dL (6.3-8.2)
[2017-03-06 18:45] VITALS: BP 99/53
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
== END 2017-03-06 18:58 | disposition home or self-care (01) ==
LOC: ER 14:35
DX: R50.9 Fever, unspecified (principal); R22.2 Localized swelling, mass and lump, trunk; L89.229 Pressure ulcer of left hip, unspecified stage; L89.329 Pressure ulcer of left buttock, unspecified stage; Z79.2 Long term (current) use of antibiotics; Z88.1 Allergy status to other antibiotic agents; Z88.2 Allergy status to sulfonamides; F17.200 Nicotine dependence, unspecified, uncomplicated
CPT/HCPCS: 36415; 80053; 85025; 87040; 99283